=== PATIENT | female | born 1945 | race Caucasian/White ===

== ENCOUNTER 2017-07-19 12:30 | Emergency (ER) | payer OTHER ==
--- NOTE | 2017-07-19 12:58 | Emergency Department Record ---
History of Present Illness - General Chief Complaint: Cough Stated Complaint: COUGH Time Seen by Provider: 07/19/17 12:50 Source: Patient Mode of Arrival: Ambulatory Limitations: No limitations - History of Present Illness Initial Comments: 72 yo female presents with a cough for about one month. The patient is in town for a wedding. She has developed fevers and feels worse today. He cough has been non productive. She saw her doctor about a week ago and had an X-ray. She is under treatment for a labial cancer. She has chronic ;ymphedema and has a standing Rx for Keflex. She took two tabs today. No nausea, vomiting or diarrhea. No dysuria. Coughing causes urinary incontinence. MD Complaint: Cough Onset/Timin -: Month(s) Severity: Moderate Quality: Aching Consistency: Constant Improves With: Nothing Worsens With: Other (fever) Context: Recent chemotherapy Associated Symptoms: Cough, Fever Treatments Prior to Arrival: None - Related Data Home Medications Medication Instructions Recorded Confirmed Last Taken Meloxicam [Mobic] 7.5 mg PO DAILY 07/19/17 07/19/17 07/19/17 Multivitamin [Multi-Vitamin Daily] 1 each PO DAILY 07/19/17 07/19/17 07/19/17 Pantoprazole Sodium [Protonix] 40 mg PO DAILY 07/19/17 07/19/17 07/19/17 Previous Rx's Medication Instructions Recorded Azithromycin [Zithromax] 250 mg PO DAILY #4 tab 07/19/17 Allergies Allergy/AdvReac Type Severity Reaction Status Date / Time No Known Drug Allergies Allergy Verified 07/19/17 12:44 Travel Screening - Travel/Exposure Within Last 30 Days Have you traveled within the last 30 days?: No Review of Systems Constitutional: Reports: Chills, Fever, Malaise, Weakness Eyes: Denies: Eye discharge ENT: Reports: Congestion Respiratory: Reports: Cough, Dyspnea. Denies: Hemoptysis, Stridor, Wheezes Cardiovascular: Reports: Edema (chronic lymphedema). Denies: Chest pain, Palpitations, Syncope Endocrine: Reports: Fatigue. Denies: Polydipsia, Polyuria Gastrointestinal: Denies: Abdominal pain, Diarrhea, Nausea, Vomiting Genitourinary: Reports: Frequency, Incontinence, Urgency. Denies: Dysuria Musculoskeletal: Denies: Arthralgia, Back pain, Myalgia Skin: Denies: Bruising, Change in color Neurological: Denies: Confusion, Headache, Numbness, Weakness Psychiatric: Denies: Anxiety Hematological/Lymphatic: Denies: Blood Clots, Easy bleeding, Easy bruising, Swollen glands Past Medical History - SOCIAL HISTORY Smoking Status: Never smoker Alcohol Use: None Drug Use: None - RESPIRATORY Hx Respiratory Disorders: No - CARDIOVASCULAR Hx Cardio Disorders: No - NEURO Hx Neuro Disorders: No - GI Hx GI Disorders: Yes Hx Reflux: Yes - Hx Genitourinary Disorders: No - ENDOCRINE Hx Endocrine Disorders: No - MUSCULOSKELETAL Hx Musculoskeletal Disorders: Yes Hx Arthritis: Yes - PSYCH Hx Psych Problems: No - HEMATOLOGY/ONCOLOGY Hx Hematology/Oncology Disorders: No Family Medical History Any Significant Family History?: No Physical Exam - General General Appearance: Alert, Oriented x3, Cooperative, No acute distress Limitations: No limitations - Head Head exam: Normal inspection - Eye Eye exam: Normal appearance. negative: Conjunctival injection, Periorbital swelling - ENT ENT exam: Normal exam, Mucous membranes moist Ear exam: Normal external inspection Nasal Exam: Normal inspection Mouth exam: Normal external inspection Teeth exam: Normal inspection Throat exam: Normal inspection - Neck Neck exam: Normal inspection, Full ROM. negative: Tenderness - Respiratory Respiratory exam: Decreased breath sounds, Rhonchi. negative: Normal lung sounds bilaterally, Accessory muscle use, Prolonged expiratory, Respiratory distress, Stridor, Wheezes - Cardiovascular Cardiovascular Exam: Normal rhythm, Normal heart sounds, Tachycardia Peripheral Pulses: 2+: Radial (R), Radial (L) - GI/Abdominal GI/Abdominal exam: Soft. negative: Tenderness - Rectal Rectal exam: Deferred - exam: Deferred - Extremities Extremities exam: Pedal edema (chronic edema to the legs, no warmth or redness) . negative: Normal inspection - Back Back exam: Denies: CVA tenderness (R), CVA tenderness (L) - Neurological Neurological exam: Alert, Normal gait, Oriented X3. negative: Motor sensory deficit - Psychiatric Psychiatric exam: Normal affect, Normal mood - Skin Skin exam: Dry, Intact, Normal color, Warm Course Vital Signs 07/19/17 12:39 Temperature 100.8 F H Pulse Rate 133 H Respiratory 20 Rate Blood Pressure 126/74 Pulse Ox 93 L - Reevaluation(s) Reevaluation #1: The labs were reviewed The CBC demonstrates a WBC of 9.8 with a Hgb of 10.1 No acute changes on the CMP The Influenza was negative The CXR was read as left lingular atelectasis or infiltrate. 07/19/17 14:28 The CTA was negative for acute process, no PE or pneumonia The patient feels very good. She requests DC home She will be DC home on antibiotics with recommendation for close follow up with the PCP. HR is down to 100. She is not short of breath. She was offered additional observation but she is feeling much better and is ready to go. We discussed at length home care and reasons to a recheck. 07/19/17 16:21 07/19/17 Medical Decision Making - Lab Data Result diagrams: 07/19/17 13:03 07/19/17 13:03 Disposition Disposition: Discharge Clinical Impression: Bronchitis Disposition: Home, Self-Care Condition: (1) Good Instructions: Acute Bronchitis (ED) Additional Instructions: Call your doctor to be seen on Friday Return if worse, vomiting, short of breath or any new concerns Prescriptions: Azithromycin [Zithromax] 250 mg PO DAILY #4 tab Forms: Patient Portal Access Time of Disposition: 16:25 Quality - Quality Measures Quality Measures: N/A - Blood Pressure Screening Does Patient Have Any of the Following: No Blood Pressure Classification: Normal BP Reading Systolic Measurement: 99 Diastolic Measurement: 46 Screening for High Blood Pressure: < Normal BP, F/U Not Required > [G8783]
[2017-07-19] MEDS: ACETAMINOPHEN 1,000 MG/100 ML BTL IVPB ONE (13:10)
[2017-07-19 13:13] LABS: HEMATOCRIT 32.7 % (35.0-47.0); HEMOGLOBIN 10.1 gm/dl (11.6-16.0); MEAN CELL VOLUME 85.8 fl (81-97); MEAN CORPUSCULAR HEMOGLOBIN 26.5 pg (27-33); MEAN CORPUSCULAR HGB CONC 30.9 g/dl (32-36); MEAN PLATELET VOLUME 10.3 fl (7.4-10.4); PLATELET COUNT 231 K/uL (130-400); RED BLOOD COUNT 3.81 M/uL (3.80-5.40); RED CELL DISTRIBUTION WIDTH 16.3 % (11.5-14.5); WHITE BLOOD COUNT W/O DIFF 9.8 K/uL (4.2-12.2)
[2017-07-19 13:25] LABS: PARTIAL THROMBOPLASTIN TIME 19.4 SECONDS (24.5-39.1); PROTHROMBIN TIME (PATIENT) 10.8 SECONDS (9.5-12.1)
[2017-07-19 13:30] LABS: INFLUENZA A NEGATIVE (NEGATIVE); INFLUENZA B NEGATIVE (NEGATIVE)
[2017-07-19 13:32] LABS: ALB/GLOB RATIO 1.5 (1.1-1.8); ALBUMIN 4.2 g/dL (4.0-5.0); ALKALINE PHOSPHATASE 97 U/L (35-104); ALT/SGPT 13 U/L (<33); AST/SGOT 16 U/L (10.0-35.0); BLOOD UREA NITROGEN 18 mg/dL (8-23); CREATININE 0.9 mg/dL (0.5-0.9); EST GLOMERULAR FILTRATION RATE > 60 mL/min; GLUCOSE,RANDOM 125 mg/dL (74-109)
[2017-07-19] MEDS: CEFTRIAXONE SODIUM 1 GM in 0.9 % SODIUM CHLORIDE 100ML 100 ML IVPB ONE (15:04)
[2017-07-19] MEDS: AZITHROMYCIN 500 MG TABLET PO ONE (15:07)
[2017-07-19] MEDS ORDERED: SODIUM CHLORIDE 0.9% 500 ML IV ONE (15:15)
--- NOTE | 2017-07-21 13:40 | RADIOLOGY REPORT ---
EXAM: CHEST, TWO VIEWS HISTORY: COUGH AND FEVER. ON CHEMOTHERAPY FOR LYMPHOMA. TECHNIQUE: PA and lateral upright views of the chest were obtained. Comparison: None. FINDINGS: The heart is normal in size. A moderate sized hiatal hernia is present. The mediastinum and pulmonary vasculature are normal. There is mild focal atelectasis or infiltrate within the left lower lung. The remaining lung wise are clear. There is no pneumothorax or effusion. Post surgical changes are present within the right shoulder. IMPRESSION: 1. MINOR ATELECTASIS OR INFILTRATE WITHIN THE LINGULA. 2. MODERATE SIZED HIATAL HERNIA. JOB NUMBER: [id number] [facility]
--- NOTE | 2017-07-21 13:49 | CT ANGIOGRAM REPORT ---
EXAM: CTA OF THE CHEST HISTORY: ACUTE DIFFICULTY BREATHING, CHEST DISCOMFORT. TECHNIQUE: Contiguous axial images from the thoracic inlet to the upper abdomen were obtained after the uneventful intravenous administration of 75 ml of Omnipaque 350. Sagittal and coronal two dimensional MIP as well as 3D/MIP reformatted images were obtained for better anatomic delineation. Comparison: Chest x-ray 07/19/17. FINDINGS: Curvilinear scarring in the lingula. Linear parenchymal band left lower lobe. Minimal dependent atelectasis. No pleural effusion. The central airways are patent. Moderate sized hiatal hernia. The heart is not enlarged and there is no pericardial effusion. Moderate coronary artery calcification. No enlarged lymph nodes in the thorax. The pulmonary arteries are well opacified. No filling defect to suggest pulmonary embolism. No thoracic aortic dissection. Thickening of the left adrenal gland likely due to hyperplasia. The remaining upper abdomen is unremarkable. No lytic or blastic osseous lesion. IMPRESSION: 1. NO PULMONARY EMBOLISM OR THORACIC AORTIC DISSECTION. 2. CURVILINEAR SCARRING IN THE LINGULA. LINEAR PARENCHYMAL BAND LEFT LOWER LOBE. 3. MODERATE SIZED HIATAL HERNIA. 4. MODERATE CORONARY ARTERY CALCIFICATION. JOB NUMBER: [id number] [facility]
== END 2017-07-19 16:40 | disposition home or self-care (01) ==
LOC: ER 12:30
DX: J20.9 Acute bronchitis, unspecified (principal); R50.81 Fever presenting with conditions classified elsewhere; R07.89 Other chest pain; R06.00 Dyspnea, unspecified; C85.90 Non-Hodgkin lymphoma, unspecified, unspecified site
CPT/HCPCS: 99284 ×2; 96374; 96375; 85730; 85610; 80053; 87400; 85027; 71020; 71275; Q9967